=== PATIENT | male | born 1960 ===

== ENCOUNTER 2023-07-23 17:46 | Outpatient (CLI) | payer BC, SELFPAY ==
[2023-07-23 16:56] LABS: Abs Immature Grans 0.07 10^3/uL (0.0-0.06); Absolute Basophil Count 0.07 10^3/uL (0.0-0.2); Absolute Eosinophil Count 0.03 10^3/uL (0.0-0.7); Absolute Monocyte Count 0.74 10^3/uL (0.1-0.8); Basophils % 0.7; Eosinophils % 0.3; HCT 39.2 % (40.0-50.0); HGB 13.8 g/dL (13.5-17.5); Immature Grans % 0.7; Lymphocytes % 28.7; MCH 32.5 pg (27.0-33.0); MCHC 35.2 % (32.0-36.0); MCV 92 fL (80-95); Monocytes % 7.9; Neutrophils % 61.7; Platelet Count 304 10^3/uL (130-400); RBC 4.25 10^6/uL (4.36-5.78); RDW 14.1 % (11.8-14.1); RDW-SD 47.6 fL; WBC 9.41 10^3/uL (4.4-10.8)
[2023-07-23 17:11] LABS: ALT 33 U/L (16-63); AST 20 U/L (15-37); Alkaline Phosphatase 87 U/L (46-116); Anion Gap 11.3 mmol/L (3-11); BUN 18 mg/dL (7-18); Bilirubin, Total 0.9 mg/dL (0.2-1.0); CO2 24.7 mmol/L (21.0-32.0); Calcium 9.5 mg/dL (8.5-10.1); Chloride 104 mmol/L (98-107); Estimated GFR 85.63 (mL/min/1.73m2); Glucose 97 mg/dL (74-106); Potassium 3.9 mmol/L (3.5-5.1); Sodium 140 mmol/L (136-145); Total Protein 7.7 g/dL (6.4-8.2)
[2023-07-23 17:51] LABS: Iron 76 ug/dL (65-175); Total Iron Binding Capacity 300 ug/dL (250-450); Transferrin Sat 25 % (20-55)
[2023-07-23 17:52] LABS: Folate 19.6 ng/mL (8.6-20.0); Vitamin B12 902 pg/mL (193-986)
== END 2023-07-23 17:47 | disposition home or self-care (01) ==
LOC: LBO 17:46
PROVIDERS: Visit Provider Internal Medicine
DX: C71.9 Malignant neoplasm of brain, unspecified (principal)
CPT/HCPCS: 80053; 82607; 82746; 83540; 83550; 85025

== ENCOUNTER 2023-07-30 10:25 | Outpatient (CLI) | payer BC, SELFPAY ==
[2023-07-30 10:23] LABS: Abs Immature Grans 0.58 10^3/uL (0.0-0.06); Absolute Monocyte Count 0.99 10^3/uL (0.1-0.8); Basophils % 0.2; HCT 40.6 % (40.0-50.0); HGB 14.7 g/dL (13.5-17.5); Immature Grans % 2.7; Lymphocytes % 7.3; MCHC 36.2 % (32.0-36.0); MCV 91 fL (80-95); MPV 9.2 fL (8.0-11.0); Monocytes % 4.7; Neutrophils % 85.1; Nucleated RBC 0.1 % (0.0-0.3); Platelet Count 271 10^3/uL (130-400); RBC 4.45 10^6/uL (4.36-5.78); RDW 13.9 % (11.8-14.1); RDW-SD 46.3 fL; WBC 21.11 10^3/uL (4.4-10.8)
[2023-07-30 10:31] LABS: Absolute Basophil Count 0.04 10^3/uL (0.0-0.2); Absolute Lymphocyte Count 1.54 10^3/uL (1.2-3.4); Absolute Neutrophil Count 17.96 10^3/uL (1.2-6.7)
[2023-07-30 10:44] LABS: Diff Comment Diff Reviewed; RBC Morphology Normal
[2023-07-30 10:50] LABS: Iron 95 ug/dL (65-175); Total Iron Binding Capacity 270 ug/dL (250-450); Transferrin Sat 35 % (20-55)
[2023-07-30 11:08] LABS: ALT 38 U/L (16-63); AST 11 U/L (15-37); Albumin 3.7 g/dL (3.4-5.0); Alkaline Phosphatase 84 U/L (46-116); Anion Gap 11.9 mmol/L (3-11); BUN 28 mg/dL (7-18); Bilirubin, Total 0.7 mg/dL (0.2-1.0); CO2 25.1 mmol/L (21.0-32.0); CREATININE 1.2 mg/dL (0.70-1.30); Calcium 9.4 mg/dL (8.5-10.1); Chloride 102 mmol/L (98-107); Folate 14.8 ng/mL (8.6-20.0); Glucose 221 mg/dL (74-106); Potassium 3.9 mmol/L (3.5-5.1); Sodium 139 mmol/L (136-145); Total Protein 7.2 g/dL (6.4-8.2); Vitamin B12 1055 pg/mL (193-986)
== END 2023-07-30 10:26 | disposition home or self-care (01) ==
LOC: LBO 10:25
PROVIDERS: Visit Provider Internal Medicine
DX: C71.9 Malignant neoplasm of brain, unspecified (principal)
CPT/HCPCS: 36415; 80053; 82607; 82746; 83540; 83550; 85025

== ENCOUNTER 2023-08-06 10:46 | Outpatient (CLI) | payer BC, SELFPAY ==
[2023-08-06 10:49] LABS: Abs Immature Grans 1.19 10^3/uL (0.0-0.06); Absolute Lymphocyte Count 1.48 10^3/uL (1.2-3.4); Absolute Monocyte Count 1.21 10^3/uL (0.1-0.8); Basophils % 0.5; HCT 43.7 % (40.0-50.0); HGB 15.7 g/dL (13.5-17.5); Immature Grans % 4.9; Lymphocytes % 6.1; MCH 32.8 pg (27.0-33.0); MCHC 35.9 % (32.0-36.0); MCV 91 fL (80-95); MPV 9.6 fL (8.0-11.0); Neutrophils % 83.5; Platelet Count 156 10^3/uL (130-400); RBC 4.79 10^6/uL (4.36-5.78); RDW-SD 46.8 fL; WBC 24.27 10^3/uL (4.4-10.8)
[2023-08-06 10:50] LABS: Absolute Basophil Count 0.12 10^3/uL (0.0-0.2); Absolute Neutrophil Count 20.27 10^3/uL (1.2-6.7)
[2023-08-06 10:51] LABS: Bilirubin Small (Negative); Blood Negative (Negative); Clarity Clear (Clear); Glucose Negative (Negative); Ketones Trace mg/dL (Negative); Leukocyte Esterase Negative (Negative); Nitrite Negative (Negative); Specific Gravity >= 1.030 (1.005-1.025); pH 5.5 (5-8)
[2023-08-06 11:00] LABS: Bacteria Negative HPF (Negative); C & S Indicated? No; Casts 3-5 Hyaline LPF (Negative); Crystals Negative HPF (Negative); Epithelial Cells Rare HPF (Negative); Mucus Moderate (Negative); RBC Negative HPF (0-2); WBC Negative HPF (0-5)
[2023-08-06 11:02] LABS: Diff Comment Diff Reviewed; RBC Morphology Normal
[2023-08-06 11:21] LABS: ALT 41 U/L (16-63); AST 17 U/L (15-37); Albumin 3.5 g/dL (3.4-5.0); Alkaline Phosphatase 76 U/L (46-116); Anion Gap 11.9 mmol/L (3-11); BUN 32 mg/dL (7-18); Bilirubin, Total 0.8 mg/dL (0.2-1.0); CO2 22.1 mmol/L (21.0-32.0); CREATININE 1.3 mg/dL (0.70-1.30); Calcium 8.8 mg/dL (8.5-10.1); Chloride 102 mmol/L (98-107); Glucose 181 mg/dL (74-106); Potassium 4.7 mmol/L (3.5-5.1); Sodium 136 mmol/L (136-145); Total Protein 6.7 g/dL (6.4-8.2)
== END 2023-08-06 10:47 | disposition home or self-care (01) ==
LOC: LBO 10:46
PROVIDERS: Visit Provider Internal Medicine
DX: C71.9 Malignant neoplasm of brain, unspecified (principal)
CPT/HCPCS: 36415; 80053; 81003; 81015; 85025

== ENCOUNTER 2023-08-13 12:44 | Outpatient (CLI) | payer BC, SELFPAY ==
[2023-08-13 11:17] LABS: Bilirubin Negative (Negative); Blood Negative (Negative); Clarity Clear (Clear); Glucose 100 mg/dL (Negative); Ketones Negative (Negative); Leukocyte Esterase Negative (Negative); Nitrite Negative (Negative); Specific Gravity >= 1.030 (1.005-1.025)
[2023-08-13 11:22] LABS: Abs Immature Grans 0.51 10^3/uL (0.0-0.06); Absolute Basophil Count 0.05 10^3/uL (0.0-0.2); Absolute Monocyte Count 0.79 10^3/uL (0.1-0.8); Basophils % 0.2; HCT 44.5 % (40.0-50.0); Lymphocytes % 4.5; MCH 33.1 pg (27.0-33.0); MCV 92 fL (80-95); Monocytes % 3.1; Neutrophils % 90.2; Platelet Count 112 10^3/uL (130-400); RBC 4.84 10^6/uL (4.36-5.78); RDW 14.1 % (11.8-14.1); RDW-SD 47.5 fL
[2023-08-13 11:27] LABS: Bacteria Negative HPF (Negative); C & S Indicated? No; Casts 0-2 Hyaline LPF (Negative); Crystals Negative HPF (Negative); Epithelial Cells Rare HPF (Negative); Mucus Negative (Negative); RBC Negative HPF (0-2); WBC 0-2 HPF (0-5)
[2023-08-13 11:35] LABS: Absolute Lymphocyte Count 1.15 10^3/uL (1.2-3.4)
[2023-08-13 11:37] LABS: Diff Comment Diff Reviewed; RBC Morphology Normal
[2023-08-13 11:38] LABS: ALT 65 U/L (16-63); AST 15 U/L (15-37); Albumin 3.3 g/dL (3.4-5.0); Alkaline Phosphatase 76 U/L (46-116); Anion Gap 8.7 mmol/L (3-11); BUN 37 mg/dL (7-18); CO2 24.3 mmol/L (21.0-32.0); CREATININE 0.9 mg/dL (0.70-1.30); Calcium 8.9 mg/dL (8.5-10.1); Chloride 101 mmol/L (98-107); Estimated GFR 97.17 (mL/min/1.73m2); Glucose 157 mg/dL (74-106); Sodium 134 mmol/L (136-145); Total Protein 6.6 g/dL (6.4-8.2)
== END 2023-08-13 12:45 | disposition home or self-care (01) ==
LOC: LBO 12:45
PROVIDERS: Visit Provider Internal Medicine
DX: C71.9 Malignant neoplasm of brain, unspecified (principal); R82.998 Other abnormal findings in urine
CPT/HCPCS: 36415; 80053; 81003; 81015; 85025

== ENCOUNTER 2023-08-16 08:21 | Outpatient (CLI) | payer BC, SELFPAY ==
[2023-08-16 11:56] LABS: Abs Immature Grans 0.26 10^3/uL (0.0-0.06); Absolute Lymphocyte Count 0.86 10^3/uL (1.2-3.4); Basophils % 0.2; Eosinophils % 0.1; HCT 44.2 % (40.0-50.0); HGB 15.8 g/dL (13.5-17.5); Immature Grans % 1.4; Lymphocytes % 4.6; MCH 33.1 pg (27.0-33.0); MCHC 35.7 % (32.0-36.0); MPV 8.9 fL (8.0-11.0); Monocytes % 2.3; Neutrophils % 91.4; Platelet Count 93 10^3/uL (130-400); RBC 4.78 10^6/uL (4.36-5.78); RDW 14.2 % (11.8-14.1); RDW-SD 48.4 fL
[2023-08-16 11:58] LABS: Bilirubin Negative (Negative); Blood Negative (Negative); Clarity Sl Cloudy (Clear); Glucose Negative (Negative); Ketones Negative (Negative); Leukocyte Esterase Negative (Negative); Nitrite Negative (Negative); Specific Gravity >= 1.030 (1.005-1.025); Urobilinogen 0.2 mg/dL (Up to 0.2); pH 5.5 (5-8)
[2023-08-16 11:58] LABS: Absolute Basophil Count 0.04 10^3/uL (0.0-0.2); Absolute Eosinophil Count 0.02 10^3/uL (0.0-0.7); Absolute Monocyte Count 0.43 10^3/uL (0.1-0.8); Absolute Neutrophil Count 17.18 10^3/uL (1.2-6.7)
[2023-08-16 12:06] LABS: Diff Comment Diff Reviewed; MCV 93 fL (80-95); RBC Morphology Normal
[2023-08-16 12:11] LABS: Bacteria Negative HPF (Negative); Epithelial Cells Few HPF (Negative); RBC Negative HPF (0-2); WBC Negative HPF (0-5)
[2023-08-16 12:12] LABS: C & S Indicated? No; Casts 0-2 Hyaline LPF (Negative); Crystals Negative HPF (Negative); Mucus Moderate (Negative)
[2023-08-16 12:18] LABS: ALT 73 U/L (16-63); AST 16 U/L (15-37); Albumin 3.2 g/dL (3.4-5.0); Alkaline Phosphatase 66 U/L (46-116); Anion Gap 10.2 mmol/L (3-11); BUN 40 mg/dL (7-18); CO2 24.8 mmol/L (21.0-32.0); CREATININE 1.1 mg/dL (0.70-1.30); Calcium 8.7 mg/dL (8.5-10.1); Chloride 102 mmol/L (98-107); Estimated GFR 76.37 (mL/min/1.73m2); Glucose 196 mg/dL (74-106); Potassium 4.6 mmol/L (3.5-5.1); Sodium 137 mmol/L (136-145); Total Protein 6.4 g/dL (6.4-8.2)
== END 2023-08-16 08:22 | disposition home or self-care (01) ==
LOC: LBO 08-17 08:21
PROVIDERS: Visit Provider Internal Medicine
DX: C71.9 Malignant neoplasm of brain, unspecified (principal); R82.998 Other abnormal findings in urine
CPT/HCPCS: 36415; 80053; 81003; 81015; 85025

== ENCOUNTER 2023-08-19 12:57 | Outpatient (CLI) | payer BC, SELFPAY ==
[2023-08-19 11:07] LABS: Abs Immature Grans 0.22 10^3/uL (0.0-0.06); Absolute Basophil Count 0.04 10^3/uL (0.0-0.2); Absolute Monocyte Count 0.72 10^3/uL (0.1-0.8); Absolute Neutrophil Count 12.98 10^3/uL (1.2-6.7); Basophils % 0.3; HCT 44.4 % (40.0-50.0); HGB 16.2 g/dL (13.5-17.5); Immature Grans % 1.5; Lymphocytes % 6.7; MCH 33.3 pg (27.0-33.0); MCHC 36.5 % (32.0-36.0); MCV 91 fL (80-95); MPV 9.3 fL (8.0-11.0); Monocytes % 4.8; Neutrophils % 86.7; Platelet Count 110 10^3/uL (130-400); RBC 4.86 10^6/uL (4.36-5.78); RDW 13.9 % (11.8-14.1); RDW-SD 46.9 fL; WBC 14.97 10^3/uL (4.4-10.8)
[2023-08-19 11:12] LABS: Bilirubin Negative (Negative); Blood Negative (Negative); Clarity Clear (Clear); Glucose Negative (Negative); Ketones Negative (Negative); Leukocyte Esterase Negative (Negative); Nitrite Negative (Negative); Specific Gravity >= 1.030 (1.005-1.025)
[2023-08-19 11:19] LABS: ALT 71 U/L (16-63); AST 19 U/L (15-37); Albumin 3.1 g/dL (3.4-5.0); Alkaline Phosphatase 69 U/L (46-116); Anion Gap 11.1 mmol/L (3-11); BUN 38 mg/dL (7-18); CO2 24.9 mmol/L (21.0-32.0); CREATININE 0.9 mg/dL (0.70-1.30); Calcium 8.7 mg/dL (8.5-10.1); Chloride 100 mmol/L (98-107); Estimated GFR 97.17 (mL/min/1.73m2); Glucose 156 mg/dL (74-106); Potassium 5.1 mmol/L (3.5-5.1); Sodium 136 mmol/L (136-145); Total Protein 6.5 g/dL (6.4-8.2)
[2023-08-19 11:25] LABS: Bacteria Rare HPF (Negative); Crystals Negative HPF (Negative); Epithelial Cells Few HPF (Negative); Mucus Heavy (Negative); RBC 0-2 HPF (0-2); WBC 0-2 HPF (0-5)
[2023-08-19 11:26] LABS: C & S Indicated? No
[2023-08-19 11:56] LABS: Iron 164 ug/dL (65-175); Total Iron Binding Capacity 242 ug/dL (250-450); Transferrin Sat 68 % (20-55)
[2023-08-19 12:23] LABS: Folate 17.9 ng/mL (8.6-20.0); Vitamin B12 836 pg/mL (193-986)
== END 2023-08-19 12:58 | disposition home or self-care (01) ==
LOC: LBO 12:57
PROVIDERS: Visit Provider Internal Medicine
DX: C71.9 Malignant neoplasm of brain, unspecified (principal)
CPT/HCPCS: 36415; 80053; 81003; 81015; 82607; 82746; 83540; 83550; 85025

== ENCOUNTER 2023-08-27 14:58 | Outpatient (CLI) | payer BC, SELFPAY ==
[2023-08-27 11:05] LABS: Abs Immature Grans 0.19 10^3/uL (0.0-0.06); Absolute Basophil Count 0.03 10^3/uL (0.0-0.2); Absolute Eosinophil Count 0.01 10^3/uL (0.0-0.7); Absolute Lymphocyte Count 1.04 10^3/uL (1.2-3.4); Absolute Monocyte Count 0.31 10^3/uL (0.1-0.8); Basophils % 0.3; Eosinophils % 0.1; HGB 15.5 g/dL (13.5-17.5); Immature Grans % 2.2; Lymphocytes % 12.1; MCH 33.2 pg (27.0-33.0); MCV 92 fL (80-95); MPV 9.3 fL (8.0-11.0); Monocytes % 3.6; Neutrophils % 81.7; Platelet Count 116 10^3/uL (130-400); RBC 4.67 10^6/uL (4.36-5.78); RDW 14.1 % (11.8-14.1); RDW-SD 48.1 fL; WBC 8.58 10^3/uL (4.4-10.8)
[2023-08-27 11:06] LABS: Bilirubin Small (Negative); Blood Trace-intact (Negative); Clarity Clear (Clear); Glucose 100 mg/dL (Negative); Ketones Trace mg/dL (Negative); Leukocyte Esterase Negative (Negative); Nitrite Negative (Negative); Specific Gravity 1.025 (1.005-1.025)
[2023-08-27 11:15] LABS: Bacteria Negative HPF (Negative); C & S Indicated? No; Casts 3-5 Hyaline LPF (Negative); Crystals Negative HPF (Negative); Epithelial Cells Rare HPF (Negative); Mucus Moderate (Negative); Other Cells Rare Renal (Negative); RBC 0-2 HPF (0-2); WBC Negative HPF (0-5)
[2023-08-27 11:20] LABS: Iron 82 ug/dL (65-175); Total Iron Binding Capacity 291 ug/dL (250-450); Transferrin Sat 28 % (20-55)
[2023-08-27 11:45] LABS: ALT 85 U/L (16-63); AST 25 U/L (15-37); Alkaline Phosphatase 84 U/L (46-116); Anion Gap 10.4 mmol/L (3-11); BUN 36 mg/dL (7-18); Bilirubin, Total 1.3 mg/dL (0.2-1.0); CO2 25.6 mmol/L (21.0-32.0); CREATININE 1.1 mg/dL (0.70-1.30); Calcium 9.3 mg/dL (8.5-10.1); Chloride 101 mmol/L (98-107); Estimated GFR 76.37 (mL/min/1.73m2); Folate 19.2 ng/mL (8.6-20.0); Glucose 223 mg/dL (74-106); Potassium 4.4 mmol/L (3.5-5.1); Sodium 137 mmol/L (136-145); Total Protein 6.7 g/dL (6.4-8.2); Vitamin B12 1401 pg/mL (193-986)
== END 2023-08-27 14:59 | disposition home or self-care (01) ==
LOC: LBO 15:09
PROVIDERS: Visit Provider Internal Medicine
DX: C71.9 Malignant neoplasm of brain, unspecified (principal); R79.89 Other specified abnormal findings of blood chemistry; R82.998 Other abnormal findings in urine
CPT/HCPCS: 36415; 80053; 81003; 81015; 82607; 82746; 83540; 83550; 85025

== ENCOUNTER 2023-08-30 11:16 | Outpatient (CLI) | payer BC, SELFPAY ==
[2023-08-30 11:19] LABS: Abs Immature Grans 0.22 10^3/uL (0.0-0.06); Absolute Basophil Count 0.05 10^3/uL (0.0-0.2); Absolute Eosinophil Count 0.01 10^3/uL (0.0-0.7); Absolute Lymphocyte Count 1.63 10^3/uL (1.2-3.4); Absolute Monocyte Count 0.38 10^3/uL (0.1-0.8); Absolute Neutrophil Count 6.54 10^3/uL (1.2-6.7); Basophils % 0.6; Eosinophils % 0.1; HCT 41.7 % (40.0-50.0); HGB 15.4 g/dL (13.5-17.5); Immature Grans % 2.5; Lymphocytes % 18.5; MCH 33.4 pg (27.0-33.0); MCHC 36.9 % (32.0-36.0); MCV 91 fL (80-95); Monocytes % 4.3; Nucleated RBC 0.3 % (0.0-0.3); Platelet Count 112 10^3/uL (130-400); RBC 4.61 10^6/uL (4.36-5.78); RDW 14.3 % (11.8-14.1); RDW-SD 46.9 fL; WBC 8.83 10^3/uL (4.4-10.8)
[2023-08-30 11:22] LABS: Bilirubin Negative (Negative); Blood Negative (Negative); Clarity Sl Cloudy (Clear); Glucose 250 mg/dL (Negative); Ketones Negative (Negative); Leukocyte Esterase Negative (Negative); Nitrite Negative (Negative); Specific Gravity 1.025 (1.005-1.025); pH 5.5 (5-8)
[2023-08-30 11:30] LABS: Bacteria Negative HPF (Negative); C & S Indicated? No; Casts 3-5 Hyaline LPF (Negative); Crystals Negative HPF (Negative); Epithelial Cells Few HPF (Negative); Mucus Moderate (Negative); RBC Negative HPF (0-2); WBC Negative HPF (0-5)
[2023-08-30 11:41] LABS: ALT 90 U/L (16-63); AST 30 U/L (15-37); Albumin 3.1 g/dL (3.4-5.0); Alkaline Phosphatase 87 U/L (46-116); BUN 38 mg/dL (7-18); Bilirubin, Total 1.7 mg/dL (0.2-1.0); CREATININE 1.3 mg/dL (0.70-1.30); Calcium 8.7 mg/dL (8.5-10.1); Chloride 96 mmol/L (98-107); Glucose 260 mg/dL (74-106); Potassium 4.6 mmol/L (3.5-5.1); Sodium 131 mmol/L (136-145); Total Protein 6.8 g/dL (6.4-8.2)
== END 2023-08-30 11:17 | disposition home or self-care (01) ==
LOC: LBO 11:18
PROVIDERS: Visit Provider Internal Medicine
DX: C71.9 Malignant neoplasm of brain, unspecified (principal); R82.998 Other abnormal findings in urine
CPT/HCPCS: 36415; 80053; 81003; 81015; 85025

== ENCOUNTER 2023-09-02 05:07 | Outpatient (CLI) | payer BC, SELFPAY ==
[2023-09-02 10:50] LABS: Abs Immature Grans 0.43 10^3/uL (0.0-0.06); Absolute Basophil Count 0.06 10^3/uL (0.0-0.2); Absolute Eosinophil Count 0.01 10^3/uL (0.0-0.7); Absolute Neutrophil Count 8.09 10^3/uL (1.2-6.7); Basophils % 0.5; Eosinophils % 0.1; HCT 38.6 % (40.0-50.0); HGB 13.8 g/dL (13.5-17.5); Immature Grans % 3.8; Lymphocytes % 19.7; MCH 33.2 pg (27.0-33.0); MCHC 35.8 % (32.0-36.0); MCV 93 fL (80-95); Monocytes % 3.6; Neutrophils % 72.3; Nucleated RBC 0.7 % (0.0-0.3); Platelet Count 137 10^3/uL (130-400); RBC 4.16 10^6/uL (4.36-5.78); RDW 15.1 % (11.8-14.1); RDW-SD 49.1 fL; WBC 11.19 10^3/uL (4.4-10.8)
[2023-09-02 10:52] LABS: Bilirubin Small (Negative); Blood Negative (Negative); Clarity Clear (Clear); Glucose Negative (Negative); Ketones Trace mg/dL (Negative); Leukocyte Esterase Negative (Negative); Nitrite Negative (Negative); Specific Gravity 1.025 (1.005-1.025); pH 5.5 (5-8)
[2023-09-02 10:58] LABS: Bacteria Few HPF (Negative); Crystals Negative HPF (Negative); Epithelial Cells Rare HPF (Negative); Mucus Heavy (Negative); Other Cells Negative (Negative); RBC Negative HPF (0-2); WBC 0-2 HPF (0-5)
[2023-09-02 10:59] LABS: C & S Indicated? No; Casts Negative LPF (Negative)
[2023-09-02 11:03] LABS: ALT 89 U/L (16-63); AST 31 U/L (15-37); Albumin 3.1 g/dL (3.4-5.0); Alkaline Phosphatase 89 U/L (46-116); Anion Gap 14.4 mmol/L (3-11); BUN 38 mg/dL (7-18); Bilirubin, Total 1.8 mg/dL (0.2-1.0); CO2 26.6 mmol/L (21.0-32.0); CREATININE 1.4 mg/dL (0.70-1.30); Calcium 8.8 mg/dL (8.5-10.1); Chloride 98 mmol/L (98-107); Estimated GFR 57.18 (mL/min/1.73m2); Glucose 190 mg/dL (74-106); Potassium 3.8 mmol/L (3.5-5.1); Sodium 139 mmol/L (136-145)
== END 2023-09-02 05:08 | disposition home or self-care (01) ==
LOC: LBO 05:07
PROVIDERS: Visit Provider Internal Medicine
DX: C71.9 Malignant neoplasm of brain, unspecified (principal)
CPT/HCPCS: 36415; 80053; 81003; 81015; 85025